=== PATIENT | male | born 1955 | race Caucasian/White ===

== ENCOUNTER → 2019-06-01 | Outpatient (CLI) | payer BC ==
--- NOTE | 2019-06-02 07:26 | US ---
EXAMINATION TYPE: US scrotum with doppler. Grayscale and color Doppler Duplex imaging performed of t he scrotum. DATE OF EXAM: 06/01/2019 COMPARISON: NONE CLINICAL HISTORY: N50.8 specified disorders of male genital organs. Pt states bilateral "tingling" t esticles x many years EXAM MEASUREMENTS: TESTICLES: Right Testicle: 2.8 x 1.2 x 1.9 cm Left Testicle: 2.8 x 1.2 x 2.0 cm EPIDIDYMIS HEAD: Right Epididymis: 0.6 cm Left Epididymis: 0.6 cm Doppler performed to assess for testicular vascularity; good bilateral color flow and waveforms are s een. There is no evidence of testicular torsion. Presence of hydroceles: Yes, bilaterally/ fluid with septations medially Presence of varicoceles: No Small calcifications within testicles scattered bilaterally IMPRESSION: 1. Complex fluid collection seen bilaterally. 2. Intratesticular calcifications may reflect sequela of prior infection.
== END | disposition home or self-care (01) ==
LOC: RADUSWWP 16:41
PROVIDERS: ATTEND Urology
DX: N43.3 Hydrocele, unspecified (principal); N50.89 Other specified disorders of the male genital organs
CPT/HCPCS: 76870; 93975

== ENCOUNTER 2021-01-25 08:58 | Day surgery (SDC) | payer BC ==
[2021-01-23 12:47] VITALS: BMI 22.9
--- NOTE | 2021-01-24 10:30 | P.HPIHPCON ---
History of Present Illness This is a 65-year-old male with history of [place] 7 (4+3) prostate cancer, he elected to proceed with external beam radiation therapy. Option of SpaceOR placement was discussed with him. Discussed with him risk which includes but not limited to bleeding, infection, rectal perforation. Discussed with him the purpose of the spaceOR placement is to reduce the rectal toxicity from radiation. Discussed that he could still develop rectal toxicity from radiation even with SpaceOR placement . He understood all the risk and agreed to proceed Prostate size 18 g. Consent for Procedure: I have explained the operation/procedure to the patient, including the risks, benefits, side effects, alternative therapies (including not receiving the proposed treatment or service), the likelihood of the patient achieving his/her goals, and potential recuperation problems for the procedure/sedation/analgesia, as well as any blood products, if indicated. I also explained to the patient the risks, benefits and side effects of the alternatives, as well as the risks related to not receiving the proposed procedure, care, treatment, or services. Past Medical History Past Medical History: Cancer, Hypertension, Prostate Disorder Additional Past Medical History / Comment(s): PROSTATE CANCER History of Any Multi-Drug Resistant Organisms: None Reported Additional Past Surgical History / Comment(s): COLONOSCOPY. BILAT CATARACTS REMOVED WITH LENS IMPLANTS Past Anesthesia/Blood Transfusion Reactions: No Reported Reaction Smoking Status: Former smoker - Past Family History Brother(s) Family Medical History: Cancer Sister(s) Family Medical History: Cancer Medications and Allergies Home Medications Medication Instructions Recorded Confirmed Type Tamsulosin [Flomax] 0.4 mg PO DAILY 01/23/21 01/23/21 History amLODIPine [Norvasc] 2.5 mg PO DAILY 01/23/21 01/23/21 History lisinopriL 20 mg PO DAILY 01/23/21 01/23/21 History Allergies Allergy/AdvReac Type Severity Reaction Status Date / Time amoxicillin Allergy Itching Verified 01/23/21 12:42 Surgical - Exam - General well nourished, no distress, no pain - Eyes PERRL, normal ocular movement - Respiratory normal expansion, normal respiratory effort - Psychiatric oriented to time, oriented to person, oriented to place Assessment and Plan Assessment: 65 yo male with hx of feliciano 7 prostate cancer -OR for SpaceOR placement
[~2021-01-25 08:58] MED LIST: CIPROFLOXACIN/DEXTROSE PMX 400 MG in DEXTROSE/WATER 1 200ML.BAG IVPB PRN; DEXAMETHASONE SOD PHOSPHATE 4 MG/ML 1 ML VIAL IV ONE; HYDROmorphone 0.5 MG/0.5 ML SYRINGE IVP PRN; LACTATED RINGERS 1,000 ML IV SCH; LIDOCAINE 1% (10MG/ML) FOR IV START INTRADERMA PRN; MIDAZOLAM 2 MG/2 ML VIAL IV PRN; ONDANSETRON 4 MG/2 ML VIAL IVP ONE
[2021-01-25 09:16] VITALS: TEMP 96.9
[2021-01-25 09:36] LABS: Glucose,Whole Blood 95 mg/dL (75-99)
[2021-01-25] MEDS ORDERED: MIDAZOLAM 2 MG/2 ML VIAL ONE (10:23)
[2021-01-25] MEDS ORDERED: fentaNYL (PF) 50 MCG/ML 2 ML AMP ONE (10:23)
[2021-01-25] MEDS ORDERED: LIDOCAINE 2% (PF) 20 MG/ML 5 ML VIAL SQ ONE (10:43)
--- NOTE | 2021-01-25 11:04 | P.OP ---
Date of Procedure: 01/25/21 Preoperative Diagnosis: Prostate cancer Postoperative Diagnosis: Same Procedure(s) Performed: SpaceOAR Implant Anesthesia: MAC Surgeon: Deo Cruz Estimated Blood Loss (ml): 10 IV fluids (ml): 300 Pathology: none sent Condition: stable Disposition: PACU Indications for Procedure: This is a 65-year-old male with history of [place] 7 (4+3) prostate cancer who elected to proceed with external beam radiation therapy. Option of SpaceOAR placement was discussed with him to reduce the rectal toxicity from radiation. He is aware of potential risks, which include but not limited to bleeding, infection, rectal perforation. Operative Findings: 12 mm separation created between prostate and rectum Description of Procedure: The patient was taken to the operating room and placed in the dorsolithotomy position, with his legs supported in Martín stirrups. The external genitalia was prepped and draped sterilely. The Bruel and Kjaer transrectal ultrasound probe was placed intrarectally. The prostate was imaged. The probe was then placed within the stabilizing stand. A spinal needle was advanced under ultrasonic guidance to the level of the urogenital diaphragm, and lidocaine was used to infiltrate the tissues as the needle was withdrawn. Next, the SpaceOAR needle was passed through the midline of the perineum, 1-2 cm anterior to the anal opening. The needle was slowly advanced under ultrasonic guidance until the needle tip was located within the fat plane between the prostate and rectum, at the level of the mid prostate gland. The needle was confirmed to be midline on the axial imaging. A small amount of normal saline was injected for hydrodissection. Next, the SpaceOAR components were mixed and loaded into the Y connector per protocol. The Y connector was then connected to the needle, and the components were injected slowly over a course of approximately 12 seconds. A total of 10 ml was injected. Significant distance was created between the prostate and rectum, as desired. It should be noted that at no point was there any concern of rectal perforation. The needle was withdrawn, as well as the transrectal ultrasound probe, and the procedure was terminated. The patient tolerated the procedure well and was taken to the recovery room in stable condition.
[2021-01-25 11:21] VITALS: RESP 20
[2021-01-25 11:35] VITALS: BP 104/68; PULSE 80
== END 2021-01-25 11:43 | disposition home or self-care (01) ==
LOC: OR 08:58
PROVIDERS: ATTEND Urology
DX: C61 Malignant neoplasm of prostate (principal); I10 Essential (primary) hypertension; Z98.42 Cataract extraction status, left eye; Z98.41 Cataract extraction status, right eye; Z96.1 Presence of intraocular lens; Z98.890 Other specified postprocedural states; Z87.891 Personal history of nicotine dependence; Z80.9 Family history of malignant neoplasm, unspecified; Z79.899 Other long term (current) drug therapy; Z88.0 Allergy status to penicillin
CPT/HCPCS: 55874; C1889; J2250; J1100; J2405; J3010; J0744; J2001

== ENCOUNTER → 2021-11-06 | Outpatient (CLI) | payer BC ==
[2021-11-07 01:25] LABS: Prostate Specific Antigen <0.01 ng/mL (0.00-4.50)
== END | disposition home or self-care (01) ==
LOC: LABWHC1 14:45
PROVIDERS: ATTEND Radiology Radiation Oncology
DX: C61 Malignant neoplasm of prostate (principal); R35.1 Nocturia; Z92.3 Personal history of irradiation; Z79.818 Long term (current) use of other agents affecting estrogen receptors and estrogen levels
CPT/HCPCS: 36415; 84153; 84403